=== PATIENT | male | born 1985 | race Asian ===

== ENCOUNTER → 2017-05-11 | Outpatient (CLI) | payer OTHER | END | disposition home or self-care (01) | LOC: CT 16:22 | PROC: BW28ZZZ Computerized Tomography (CT Scan) of Head (ICD-10-PCS; principal; 2017-05-11) | DX: R51 Headache (principal) ==

== ENCOUNTER 2018-02-21 16:16 | Emergency (ER) | payer OTHER ==
[~2018-02-21] VITALS: Ht 172.7 cm; Wt 66.7 kg
[2018-02-21 16:37] VITALS: BP 120/98; Ht 172.7 cm; Wt 66.7 kg
== END 2018-02-21 17:54 | disposition left against medical advice (07) ==
LOC: ED 16:16
DX: Z53.21 Procedure and treatment not carried out due to patient leaving prior to being seen by health care provider (principal)